=== PATIENT | female | born 1945 | race Caucasian/White ===

== ENCOUNTER 2023-03-03 18:44 | Observation (INO) | payer MEDICARE, SELFPAY ==
[2023-03-03 18:40] VITALS: BP 164/79; PULSE 73; RESP 16; TEMP 36.4; O2SAT 93; BMI 34.0
--- NOTE | 2023-03-03 19:23 | PC.NURSE ---
Doctor in room at 192
--- NOTE | 2023-03-03 19:25 | XR_ITS ---
PROCEDURE INFORMATION: Exam: XR Right Elbow Exam date and time: 03/03/2023 7:35 PM Age: 77 years old Clinical indication: Injury or trauma; Fall; Blunt trauma (contusions or hematomas); Elbow; Right TECHNIQUE: Imaging protocol: Radiologic exam of the right elbow. Views: 3 or more views. COMPARISON: CR XR HUMERUS RT 03/03/2023 7:35 PM FINDINGS: Bones/joints: Osteopenia. Normal alignment. Question cortical discontinuity at the volar and lateral margins of the radial head/neck junction although this may be due to circumferential spurring at the radioulnar joint. Consider CT or short-term radiographic follow-up in 5-7 days for greater specificity as clinically indicated. No definite joint effusion although the degree of obliquity on the lateral view limits sensitivity. Soft tissues: No gross soft tissue abnormalities. IMPRESSION: Contour irregularity at the radial head/neck junction might simply represent circumferential articular spurring, however it is difficult to exclude mildly impacted fracture. Consider CT or short-term radiographic follow-up for greater specificity as clinically indicated.
--- NOTE | 2023-03-03 19:25 | XR_ITS ---
PROCEDURE INFORMATION: Exam: XR Right Humerus Exam date and time: 03/03/2023 7:35 PM Age: 77 years old Clinical indication: Injury or trauma; Fall; Blunt trauma (contusions or hematomas); Arm, upper; Right TECHNIQUE: Imaging protocol: Radiologic exam of the right humerus. Views: 2 or more views. COMPARISON: CR XR SHOULDER RT MIN 2V 03/03/2023 7:35 PM FINDINGS: Bones/joints: Anterior inferior glenohumeral dislocation again noted. No fractures. Elbow alignment grossly normal. AC joint alignment normal with mild osteoarthritic changes. Soft tissues: No soft tissue abnormalities. IMPRESSION: 1. No humeral fracture. 2. Anterior inferior glenohumeral dislocation. 3. Osteopenia and minor osteoarthritic changes.
--- NOTE | 2023-03-03 19:25 | XR_ITS ---
PROCEDURE INFORMATION: Exam: XR Right Shoulder Exam date and time: 03/03/2023 7:35 PM Age: 77 years old Clinical indication: Injury or trauma; Fall; Blunt trauma (contusions or hematomas); Shoulder; Right TECHNIQUE: Imaging protocol: Radiologic exam of the right shoulder. Views: 2 or more views. COMPARISON: CR XR HUMERUS RT 03/03/2023 7:35 PM FINDINGS: Bones/joints: Anterior inferior glenohumeral dislocation. No gross fracture. Osteopenia. Minor osteoarthritic changes at the AC joint, which appears well aligned. Low lung volumes with mild basilar atelectasis which improved on the humeral radiographs with better pulmonary expansion. Moderate cervical osteoarthritic facet changes. Soft tissues: No gross soft tissue abnormalities. IMPRESSION: 1. Anterior inferior glenohumeral dislocation. 2. No gross fractures.
--- NOTE | 2023-03-03 19:25 | XR_ITS ---
PROCEDURE INFORMATION: Exam: XR Chest Exam date and time: 03/03/2023 7:35 PM Age: 77 years old Clinical indication: Injury or trauma; Fall; Blunt trauma (contusions or hematomas) TECHNIQUE: Imaging protocol: Radiologic exam of the chest. Views: 1 view. COMPARISON: CR XR HUMERUS RT 03/03/2023 7:35 PM FINDINGS: Lungs: Normal pulmonary expansion. Pleural spaces: No pleural effusion. No pneumothorax. Heart/Mediastinum: Mild cardiomegaly and central vascular congestion suspicious for an element of chronic CHF. No gross pulmonary infiltrates or edema pattern. No tracheal/mediastinal shift. Bones/joints: Anterior inferior right glenohumeral dislocation. Moderate left glenohumeral osteoarthritic change. Osteopenia. Mild thoracic spondylosis. IMPRESSION: 1. Right glenohumeral anterior inferior dislocation. 2. No gross fractures. No pneumothorax. 3. Question mild cardiomegaly and vascular congestion suspicious for chronic CHF without gross evidence of acute decompensation.
--- NOTE | 2023-03-03 19:26 | HMH.EDFALL ---
Discharge Plan Disposition Chief Complaint: Fall Clinical Impressions Clinical Impression: Fall, Blunt trauma, Anterior shoulder dislocation Discharge ED Provider: Cal Blanco HPI General Chief Complaint: Fall Stated Complaint: Fall Time Seen by Provider: 03/03/23 19:00 Mode of Arrival: EMS Source of Information: Patient Limitations: No Limitations Description of Symptoms (Recalled from ER Triage Doc. by RN): Patient states thatdakshae had her right eyeball removed this morning at and when she got home today she went to check the mail and stumbled and fell. Patient complains of right shoulder pain. Denies LOC. History of Present Illness HPI Narrative: Patient is a 77-year-old female who presents emergency department for evaluation of traumatic injury sustained in a fall. Patient states that she tripped while going to get her mail and fell onto an outstretched right upper extremity. Patient denies hitting her head, loss of consciousness, blood thinners. She is complaining of severe right shoulder pain. Denies other acute complaints at this time. Of note, patient had right eye enucleation surgery today. Related Data Allergies Allergy/AdvReac Type Severity Reaction Status Date / Time statins Allergy Uncoded 03/03/23 18:45 [facility] Disclaimer: The information contained in this section may have been updated after the patient was seen, as this information can be updated by other users. Social History Smoking Status: Never smoker alcohol intake: never current occupational status: other Travel in the last 8 weeks: None ROS Obtained: Yes Systems reviewed as appropriate & no additional complaints except as documented Physical Exam General General appearance: alert and other (Appearing in pain) Head Head exam: atraumatic and normocephalic Eye Eye exam: Present other (Shield in place over right eye) ENT ENT exam: Present mucous membranes moist Neck Neck exam: Present normal inspection; Absent tenderness Chest Chest inspection: Present normal inspection and symmetric chest wall rise Respiratory Respiratory exam: Present normal lung sounds bilaterally; Absent respiratory distress Cardiovascular Cardiovascular exam: Present regular rate and normal rhythm Abdominal Exam Abdominal exam: Present soft; Absent tenderness Extremities Exam Extremities exam: Present other (Severely tender right shoulder and proximal humerus. Palpable right radial pulse. No tenderness over the remainder of the extremities.) Neurological Exam Neurological exam: Present alert Psychiatric Psychiatric exam: Present normal affect Skin Skin exam: Present warm and dry Medical Decision Making Morris Inquiry Pt receiving controlled substance: No Vital Signs: 03/03/23 18:40 03/03/23 22:12 03/03/23 22:20 Temperature 97.5 F L 98.0 F Temperature Source Oral Oral Pulse Rate Pulse Rate [Radial] 73 71 83 Respiratory Rate 16 16 8 L Blood Pressure Blood Pressure [Right Arm] 164/79 H 198/82 H 193/86 H Blood Pressure Mean [Right Arm] 107 120 121 Blood Pressure Source Blood Pressure Source [Right Arm] Automatic Cuff Automatic Cuff Blood Pressure Position Blood Pressure Position [Right Arm] Sitting 02 Sat by Pulse Oximetry 93 L 100 97 Oxygen Delivery Method Room Air Nasal Cannula Nasal Cannula Oxygen Flow Rate (LPM) 4 4 03/03/23 22:20 03/03/23 22:45 Temperature Temperature Source Pulse Rate 73 Pulse Rate [Radial] 74 Respiratory Rate 13 12 Blood Pressure 222/90 H Blood Pressure [Right Arm] 249/103 H Blood Pressure Mean [Right Arm] 151 Blood Pressure Source Automatic Cuff Blood Pressure Source [Right Arm] Automatic Cuff Blood Pressure Position Supine Blood Pressure Position [Right Arm] Supine 02 Sat by Pulse Oximetry 98 100 Oxygen Delivery Method Nasal Cannula Nasal Cannula Oxygen Flow Rate (LPM) 4 4 Lab Data Lab Results 03/03/23 19:39: WBC 12.9 H, RBC 4.07 L, Hgb 13.7, Hct
--- NOTE | 2023-03-03 20:22 | ECG_ITS ---
APPROVED REPORT Exam: Resting ECG HR:68 bpm ECG Measurements Heart Rate 68 AXES ND 198 P 71 QRSd 141 QRS 46 QT 446 T -11 QTc 464 Conclusion SINUS RHYTHM RIGHT BUNDLE BRANCH BLOCK [120+ ms QRS DURATION, UPRIGHT V1, 40+ ms S IN I/aVL/V4/V5/V6] ABNORMAL ECG UNCONFIRMED REPORT Electronically signed by : Scar Marino MD 03/04/2023 20:11:30
[2023-03-03 20:28] LABS: Blood Urea Nitrogen 20 mg/dl (7-17); Carbon Dioxide 28 mmol/L (22.0-30.0); Chloride 99 mmol/L (98-107); Creatinine Clearance Estimated 63 mL/min (50-200); Estimated Glomerular Filt Rate 97 ml/min (>60); GFR (African American) 118 ML/MIN (>60); Glucose 150 mg/dl (74-100); Sodium 135 mmol/L (136-145)
[2023-03-03 20:30] LABS: Basophils % 0.2 % (0.1-2.0); Eosinophils % 0.1 % (0.1-12.0); Hematocrit 40.8 % (37.0-47.0); Hemoglobin 13.7 g/dL (12.2-16.2); Lymphocytes # 0.7 K/mm3 (0.7-4.5); Lymphocytes % 5.7 % (10-50); Mean Corpuscular HGB Conc 33.5 g/dL (31.8-35.4); Mean Corpuscular Hemoglobin 33.6 pg (27.0-31.2); Mean Corpuscular Volume 100.4 fl (81-99); Mean Platelet Volume 9.6 fl (7.4-10.4); Monocytes # 0.7 K/mm3 (0.1-1.0); Monocytes % 5.2 % (1.7-9.3); Neutrophils # 11.5 K/mm3 (1.8-7.8); Neutrophils % 88.8 % (37.0-80.0); Platelet Count 231 K/mm3 (142-424); Red Blood Count 4.07 M/mm3 (4.20-5.40); Red Cell Distribution Width 13.9 % (11.5-17.5); White Blood Count 12.9 K/mm3 (4.8-10.8)
[2023-03-03 20:37] LABS: MANUAL DIFFERENTIAL MANUAL DIFFERENTIAL (MANUAL DIFF)
[2023-03-03 20:59] LABS: Lymphocytes % 7 % (10-50); Neutrophils % 93 % (42-76); Platelet Estimate Normal; RBC Morphology Normal; Total Cells Counted 100
--- NOTE | 2023-03-03 22:05 | XR_ITS ---
PROCEDURE INFORMATION: Exam: XR Right Shoulder Exam date and time: 03/03/2023 10:18 PM Age: 77 years old Clinical indication: Screening exam; Post reduction; Additional info: Dislocation TECHNIQUE: Imaging protocol: Radiologic exam of the right shoulder. Views: 2 or more views. COMPARISON: CR XR SHOULDER RT MIN 2V 03/03/2023 7:35 PM FINDINGS: Bones/joints: Successful reduction of the previous right glenohumeral dislocation. Somewhat high riding right humeral head likely indicates underlying chronic rotator cuff tear, with mild chronic degenerative remodeling of the acromial undersurface. No fracture. Soft tissues: Soft tissues are unremarkable. IMPRESSION: 1. Successful reduction of the right glenohumeral joint. 2. Changes of chronic rotator cuff tear.
[2023-03-03 22:12] VITALS: BP 198/82; PULSE 71; RESP 16; TEMP 36.7; O2SAT 100
[2023-03-03 22:20] VITALS: BP 193/86; BP 249/103; PULSE 74; PULSE 83; RESP 13; RESP 8; O2SAT 97; O2SAT 98
[2023-03-03 22:45] VITALS: BP 222/90; PULSE 73; RESP 12; O2SAT 100
--- NOTE | 2023-03-03 23:26 | PC.NURSE ---
I spoke with Giancarlo, supervisor [employer] house clean[employer], requesting a bed for admission to the hospitalist.
--- NOTE | 2023-03-04 00:08 | PC.NURSE ---
REPORT CALLED TO JULI MOYA
--- NOTE | 2023-03-04 00:10 | PC.NURSE ---
provided patient with water to sip on.
[2023-03-04 00:39] VITALS: BP 163/69; PULSE 63; RESP 12; TEMP 36.6
--- NOTE | 2023-03-04 00:53 | PC.NURSE ---
Patient arrived to floor via stretcher at 00:22.
[2023-03-04 01:00] VITALS: BP 166/98; PULSE 77; RESP 20; TEMP 36.8; O2SAT 93; BMI 35.1
--- NOTE | 2023-03-04 01:13 | EXP.HP ---
History of Present Illness *Admission Date: 03/03/23 *Reason for visit:: Anterior shoulder dislocation *History of present illness: 77-year-old female presented to the ED for c/o right shoulder pain. Patient states that she tripped while going to get her mail and fell onto an outstretched right upper extremity. Patient denies hitting her head, loss of consciousness, blood thinners. She is complaining of severe right shoulder pain. The pt is s/p right eye enucleation surgery today at . She has a PMHX of HTN, HLD, and hypothyroidism. Her initial right shoulder xray revealed a anterior inferior glenohumeral dislocation. The ED physician was able to successful reduce the right glenohumeral joint. The ED physician consulted the hospitalist team for admission for physical therapy and the pt not being safe to return home alone. I admitted the pt to the medical surgical floor. She will have a PT evaluation in the morning. [facility] Disclaimer: The information contained in this section may have been updated after the patient was seen, as this information can be updated by other users. Medical History (Updated 03/04/23 @ 01:05 by Nevin Harrison RN) Hyperlipidemia Hypertension Hypothyroidism Family History (Updated 03/04/23 @ 01:05 by Nevin Harrison RN) Other Family history of heart disease Family history of hyperlipidemia Social History (Updated 03/04/23 @ 01:05 by Nevin Harrison RN) Smoking Status: Never smoker alcohol intake: never current occupational status: other Travel in the last 8 weeks: None Review of Systems Review of Systems Review of systems:: pertinent systems reviewed and negative unless documented below *Musculoskeletal Musculoskeletal: Reports arthralgias Comments: right shoulder pain Meds Home Medications and Allergies Home Medications Medication Instructions Recorded Confirmed Type cholecalciferol (vitamin D3) 50 50 mcg PO DAILY 03/04/23 03/04/23 History mcg (2,000 unit) tablet escitalopram oxalate 20 mg tablet 20 mg PO DAILY 03/04/23 03/04/23 History ezetimibe 10 mg tablet 10 mg PO DAILY 03/04/23 03/04/23 History fluticasone propionate 50 1 spray intranasal DAILY 03/04/23 03/04/23 History mcg/actuation nasal spray,suspension hydrocodone 5 mg-acetaminophen 325 1 tab PO Q6 PRN Pain 03/04/23 03/04/23 History mg tablet meloxicam 15 mg tablet 15 mg PO DAILY 03/04/23 03/04/23 History metoprolol succinate 50 mg 100 mg PO BID 03/04/23 03/04/23 History tablet,extended release 24 hr ondansetron 4 mg disintegrating 4 mg PO Q8 PRN Nausea And Vomiting 03/04/23 03/04/23 History tablet oxybutynin chloride 5 mg tablet 5 mg PO BID 03/04/23 03/04/23 History rosuvastatin 5 mg tablet 5 mg PO WEEKLY 03/04/23 03/04/23 History venlafaxine 150 mg 150 mg PO DAILY 03/04/23 03/04/23 History capsule,extended release 24 hr New Prescriptions to Start Prescriptions: Allergies Allergy/AdvReac Type Severity Reaction Status Date / Time statins Allergy Uncoded 03/03/23 18:45 Exam Data for Last 24 hours Vital signs and Labs for Last 24 Hours: Temp Pulse Resp BP Pulse Ox O2 Del Method O2 Flow Rate 97.8 F 63 12 163/69 H 100 Nasal Cannula 4 03/04/23 00:39 03/04/23 00:39 03/04/23 00:39 03/04/23 00:39 03/03/23 22:45 03/03/23 22:45 03/03/23 22:45 Laboratory Results - last 24 hr 03/03/23 19:39: WBC 12.9 H, RBC 4.07 L, Hgb 13.7, Hct 40.8, MCV 100.4 H, MCH 33.6 H, MCHC 33.5, RDW 13.9, Plt Count 231, MPV 9.6, Neut % (Auto) 88.8 H, Lymph % (Auto) 5.7 L, Thayer % (Auto) 5.2, Eos % (Auto) 0.1, Baso % (Auto) 0.2, Neut # (Auto) 11.5 H, Lymph # (Auto) 0.7, Thayer # (Auto) 0.7, Eos # (Auto) 0.0, Baso # (Auto) 0.0, Total Counted 100, Neutrophils % (Manual) 93 H, Lymphocytes % (Manual) 7 L, Platelet Estimate Normal, RBC Morphology Normal, Sodium 135 L, Potassium 4.0, Chloride 99, Carbon Dioxide 28, Anion Gap 12.0, BUN 20 H, Creatinine 0.60, Estimated Creat Clear 63, Estimat
--- NOTE | 2023-03-04 01:37 | EXP.HP ---
History of Present Illness *Admission Date: 03/03/23 *History of present illness: 77-year-old female presented to the ED for c/o right shoulder pain. Patient states that she tripped while going to get her mail and fell onto an outstretched right upper extremity. Patient denies hitting her head, loss of consciousness, blood thinners. She is complaining of severe right shoulder pain. The pt is s/p right eye enucleation surgery today at . She has a PMHX of HTN, HLD, and hypothyroidism. Her initial right shoulder xray revealed a anterior inferior glenohumeral dislocation. The ED physician was able to successful reduce the right glenohumeral joint. The ED physician consulted the hospitalist team for admission for physical therapy and the pt not being safe to return home alone. I admitted the pt to the medical surgical floor. She will have a PT evaluation in the morning. [facility] Disclaimer: The information contained in this section may have been updated after the patient was seen, as this information can be updated by other users. Medical History (Updated 03/04/23 @ 01:40 by DOLORES Gillis) Hyperlipidemia Hypertension Hypothyroidism Family History (Updated 03/04/23 @ 01:05 by Nevin Harrison RN) Other Family history of heart disease Family history of hyperlipidemia Social History (Updated 03/04/23 @ 01:05 by Nevin Harrison RN) Smoking Status: Never smoker alcohol intake: never current occupational status: other Travel in the last 8 weeks: None Review of Systems Review of Systems Review of systems:: pertinent systems reviewed and negative unless documented below Eyes Eyes: Reports eye pain Comments: s/p right eye enucleation surgery today at *Musculoskeletal Musculoskeletal: Reports arthralgias Comments: right shoulder Meds Home Medications and Allergies Home Medications Medication Instructions Recorded Confirmed Type cholecalciferol (vitamin D3) 50 50 mcg PO DAILY Supplement 03/04/23 03/04/23 History mcg (2,000 unit) tablet escitalopram oxalate 20 mg tablet 20 mg PO DAILY mood 03/04/23 03/04/23 History ezetimibe 10 mg tablet 10 mg PO DAILY High Cholesterol 03/04/23 03/04/23 History fluticasone propionate 50 1 spray intranasal DAILY Allergy 03/04/23 03/04/23 History mcg/actuation nasal Symptoms spray,suspension hydrocodone 5 mg-acetaminophen 325 1 tab PO Q6 PRN Pain 03/04/23 03/04/23 History mg tablet meloxicam 15 mg tablet 15 mg PO DAILYP PRN Pain 03/04/23 03/04/23 History metoprolol succinate 50 mg 100 mg PO BID High Blood Pressure 03/04/23 03/04/23 History tablet,extended release 24 hr ondansetron 4 mg disintegrating 4 mg PO Q8 PRN Nausea And Vomiting 03/04/23 03/04/23 History tablet oxybutynin chloride 5 mg tablet 5 mg PO BID bladder 03/04/23 03/04/23 History rosuvastatin 5 mg tablet 5 mg PO WEEKLY High Cholesterol 03/04/23 03/04/23 History venlafaxine 150 mg 150 mg PO DAILY mood 03/04/23 03/04/23 History capsule,extended release 24 hr New Prescriptions to Start Prescriptions: Allergies Allergy/AdvReac Type Severity Reaction Status Date / Time [id number] Reductase Allergy Unknown Unknown Verified 03/04/23 07:15 Inhibitor allergy reaction Exam Data for Last 24 hours Vital signs and Labs for Last 24 Hours: Temp Pulse Resp BP Pulse Ox O2 Del Method O2 Flow Rate 98.2 F 77 20 166/98 H 93 L Room Air 4 03/04/23 01:00 03/04/23 01:00 03/04/23 01:00 03/04/23 01:00 03/04/23 01:00 03/04/23 01:00 03/03/23 22:45 Laboratory Results - last 24 hr 03/03/23 19:39: WBC 12.9 H, RBC 4.07 L, Hgb 13.7, Hct 40.8, MCV 100.4 H, MCH 33.6 H, MCHC 33.5, RDW 13.9, Plt Count 231, MPV 9.6, Neut % (Auto) 88.8 H, Lymph % (Auto) 5.7 L, [place] % (Auto) 5.2, Eos % (Auto) 0.1, Baso % (Auto) 0.2, Neut # (Auto) 11.5 H, Lymph # (Auto) 0.7, [place] # (Auto) 0.7, Eos # (Auto) 0.0, Baso # (Auto) 0.0, Total Counted 100, Neutrophils % (Manual) 93 H, Lym
[2023-03-04 02:23] LABS: Thyroid Stimulating Hormone 1.75 uIU/mL (0.465-4.68)
[2023-03-04 04:00] VITALS: BP 165/78; PULSE 77; RESP 16; TEMP 36.6; O2SAT 96; BMI 35.2
[2023-03-04 07:42] VITALS: BP 157/89; PULSE 70; RESP 17; TEMP 36.8; O2SAT 94
--- NOTE | 2023-03-04 07:44 | HMH.PHAINT1 ---
Pharmacy Intervention Comments: Med reconciliation completed using external fill history
--- NOTE | 2023-03-04 08:35 | PC.NURSE ---
Pt. arrived to unit at 0030 via w/c. Pt is s/p fall at home. Pt fell outside near pt.'s mailbox. Pt. had surgery on right eye on 03/03/23 at . Pt ia alert and orient x4. Per BOGGER OPERATOR, patient placed in a conscious sedation and a reduction to the right shoulder was performed and completed with success. Sling to be properly in place to RUE. Pt c/o pain to right shoulder. Rating pain 7 . Morphine IV push X1 per facility CREATIVE SERVICES DIRECTOR. Effectiveness noted. [place] 5/325mg PO Q6 hours PRN put in place for future use. Pt has a steady gait with SBA. Continent of bowel and bladder. Lungs clear.
--- NOTE | 2023-03-04 10:00 | HMH.PTEV ---
Physical Therapy Evaluation Rehab PT IP Evaluation Start: 03/03/23 23:41 Freq: ONCE Status: Active Protocol: Document 03/04/23 09:51 YURY (Rec: 03/04/23 10:00 YURY [id number]) Subjective/History History History Patient is a 77 year old female admitted to [facility] secondary to FOOSH injury at home while walking to get her mail. Fall resulted in ant/inf GHJ dislocation. Patient had previously underwent R eye enucleation at and was discharged same day. Patient lives at home alone. Previously independent with all ADL's/IADL's. Patient reports that she has a son that will be able to check in on her daily. Subjective Subjective My right shoulder feels fine because of the meds. The left shoulder has a torn rotator cuff, too. New diagnosis of cancer in past 12 No months? Rehab PT IP Eval Objective Appearance Patient Behavior Appropriate,Cooperative Patient Orientation Person,Place,Birthday Difficulty following instructions none Speech Pattern Clear,Appropriate Ambulation Patient Able to Ambulate Yes Ambulation Observation IP General Gait Pattern Observation No Deviations/Normal Ambulation Distance (feet) 100 Ambulation Assistive Device None Ambulation Ability Contact Guard/Hand Hold Balance Ability to Arise Able, uses arms to help Sitting Balance Steady, safe Standing Balance Narrow stance w/o support Dynamic Sitting Balance Ability Normal Dynamic Standing Balance Ability Normal Transfers Bed Transfer Ability Independent Chair Transfer Ability Independent Sit to Stand Bed Transfer Ability Independent Sit to Stand Chair Transfer Ability Independent Pain Right Shoulder Pain Intensity 2 ROM RUE PT ROM Status ABN Abnormal ROM Comment Patient in sling with instruction to immobilize at this time. MMT RUE PT MMT ABN Abnormal MMT Grade 2/5 Rehab PT IP prob,goals,plan Problems Date of Evaluation: 03/04/23 Rehab Potential Rehab Potential Innapropriate for Skilled
--- NOTE | 2023-03-04 10:38 | SW/DCPLANNER ---
Addendum entered by Christianne Montalvo 03/04/23 13:26: Misty nuñez/ [facility] stated that services will begin this week for this patient. Original Note: I spoke w/ this patient regarding plans once medically stable for discharge. PT evaluated patient and recommended home health services at time of discharge. Patient is agreeable to home health services and prefers to use [facility]. Patient information/order will be faxed to [facility] at time of discharge. Patient will discharge home this afternoon.
--- NOTE | 2023-03-04 11:56 | EXP.DC.SUM ---
General Admission date:: 03/04/23 Discharge date: 03/04/23 HPI HPI HPI: 77-year-old female presented to the ED for c/o right shoulder pain. Patient states that she tripped while going to get her mail and fell onto an outstretched right upper extremity. Patient denies hitting her head, loss of consciousness, blood thinners. She is complaining of severe right shoulder pain. The pt is s/p right eye enucleation surgery today at . She has a PMHX of HTN, HLD, and hypothyroidism. Her initial right shoulder xray revealed a anterior inferior glenohumeral dislocation. The ED physician was able to successful reduce the right glenohumeral joint. The ED physician consulted the hospitalist team for admission for physical therapy and the pt not being safe to return home alone. I admitted the pt to the medical surgical floor. She will have a PT evaluation in the morning. Hospital Course Hospital Course Hospital Course: see same date H&P and discharge addendum patient discharged home with home health Exam Data for Last 24 hours Vital signs and Labs for Last 24 Hours: Temp Pulse Resp BP Pulse Ox O2 Del Method O2 Flow Rate 98.3 F 70 17 157/89 H 94 L Nasal Cannula 2 03/04/23 07:42 03/04/23 07:42 03/04/23 07:42 03/04/23 07:42 03/04/23 07:42 03/04/23 07:42 03/04/23 07:42 Laboratory Results - last 24 hr 03/03/23 19:39: WBC 12.9 H, RBC 4.07 L, Hgb 13.7, Hct 40.8, MCV 100.4 H, MCH 33.6 H, MCHC 33.5, RDW 13.9, Plt Count 231, MPV 9.6, Neut % (Auto) 88.8 H, Lymph % (Auto) 5.7 L, [place] % (Auto) 5.2, Eos % (Auto) 0.1, Baso % (Auto) 0.2, Neut # (Auto) 11.5 H, Lymph # (Auto) 0.7, [place] # (Auto) 0.7, Eos # (Auto) 0.0, Baso # (Auto) 0.0, Total Counted 100, Neutrophils % (Manual) 93 H, Lymphocytes % (Manual) 7 L, Platelet Estimate Normal, RBC Morphology Normal, Sodium 135 L, Potassium 4.0, Chloride 99, Carbon Dioxide 28, Anion Gap 12.0, BUN 20 H, Creatinine 0.60, Estimated Creat Clear 63, Estimated GFR 97, Est GFR ( Amer) 118, Glucose 150 H, Calcium 9.0, TSH 1.75 I & O for Last 24 hours: Intake & Output 03/01/23 03/02/23 03/03/23 03/04/23 23:59 23:59 23:59 23:59 Intake Total 240 / 240 Output Total 200 / 200 Balance 40 / 40 Weight 81.647 kg 84.623 kg Results Data Completed and Pending Labs on day of discharge: Labs from last 24 hours 03/03/23 19:39 WBC 12.9 H RBC 4.07 L Hgb 13.7 Hct 40.8 MCV 100.4 H MCH 33.6 H MCHC 33.5 RDW 13.9 Plt Count 231 MPV 9.6 Neut % (Auto) 88.8 H Lymph % (Auto) 5.7 L [place] % (Auto) 5.2 Eos % (Auto) 0.1 Baso % (Auto) 0.2 Neut # (Auto) 11.5 H Lymph # (Auto) 0.7 [place] # (Auto) 0.7 Eos # (Auto) 0.0 Baso # (Auto) 0.0 Total Counted 100 Neutrophils % (Manual) 93 H Lymphocytes % (Manual) 7 L Platelet Estimate Normal RBC Morphology Normal Sodium 135 L Potassium 4.0 Chloride 99 Carbon Dioxide 28 Anion Gap 12.0 BUN 20 H Creatinine 0.60 Estimated Creat Clear 63 Estimated GFR 97 Est GFR ( Amer) 118 Glucose 150 H Calcium 9.0 TSH 1.75 DS: Diagnosis Discharge Diagnosis (1) Anterior shoulder dislocation: Status: Acute Code(s): S43.016A - Anterior dislocation of unspecified humerus, initial encounter (2) Fall: Status: Acute Code(s): W19.XXXA - Unspecified fall, initial encounter (3) Blunt trauma: Status: Acute Code(s): T14.90XA - Injury, unspecified, initial encounter (4) Hypothyroidism: Status: Acute Code(s): E03.9 - Hypothyroidism, unspecified (5) Hypertension: Status: Acute Code(s): I10 - Essential (primary) hypertension (6) Hyperlipidemia: Status: Acute Code(s): E78.5 - Hyperlipidemia, unspecified Meds Home Medications and Allergies Home Medications Medication Instructions Recorded Confirmed Type cholecalciferol (vitamin D3) 50 50 mcg PO DAILY Supplement 03/04/23 03/04/23 History mcg (2,000 unit) tablet escitalopr
--- NOTE | 2023-03-04 12:09 | EXP.ORTH.CON ---
History of Present Illness *Admission Date: 03/03/23 *History of present illness: 77-year-old female presented to the ED for c/o right shoulder pain. Patient states that she tripped while going to get her mail and fell onto an outstretched right upper extremity. Patient denies hitting her head, loss of consciousness, blood thinners. She is complaining of severe right shoulder pain. The pt is s/p right eye enucleation surgery today at . She has a PMHX of HTN, HLD, and hypothyroidism. Injury x-ray of right shoulder showed anterior dislocation of the glenohumeral joint. Fortunately Dr. Blanco did a great job of reducing the shoulder and had successful reduction of the anterior dislocation. She was placed in a sling and immobilizer. Ortho consulted regarding any further treatment options in regards to the shoulder dislocation. [facility] Disclaimer: The information contained in this section may have been updated after the patient was seen, as this information can be updated by other users. Medical History (Updated 03/04/23 @ 12:11 by Hemant García DO) Hyperlipidemia Hypertension Hypothyroidism Family History (Updated 03/04/23 @ 01:05 by Nevin Harrison RN) Other Family history of heart disease Family history of hyperlipidemia Social History (Updated 03/04/23 @ 01:05 by Nevin Harrison RN) Smoking Status: Never smoker alcohol intake: never current occupational status: other Travel in the last 8 weeks: None Meds Home Medications and Allergies Home Medications Medication Instructions Recorded Confirmed Type cholecalciferol (vitamin D3) 50 50 mcg PO DAILY Supplement 03/04/23 03/04/23 History mcg (2,000 unit) tablet escitalopram oxalate 20 mg tablet 20 mg PO DAILY mood 03/04/23 03/04/23 History ezetimibe 10 mg tablet 10 mg PO DAILY High Cholesterol 03/04/23 03/04/23 History fluticasone propionate 50 1 spray intranasal DAILY Allergy 03/04/23 03/04/23 History mcg/actuation nasal Symptoms spray,suspension hydrocodone 5 mg-acetaminophen 325 1 tab PO Q6 PRN Pain 03/04/23 03/04/23 History mg tablet meloxicam 15 mg tablet 15 mg PO DAILYP PRN Pain 03/04/23 03/04/23 History metoprolol succinate 50 mg 100 mg PO BID High Blood Pressure 03/04/23 03/04/23 History tablet,extended release 24 hr ondansetron 4 mg disintegrating 4 mg PO Q8 PRN Nausea And Vomiting 03/04/23 03/04/23 History tablet oxybutynin chloride 5 mg tablet 5 mg PO BID bladder 03/04/23 03/04/23 History rosuvastatin 5 mg tablet 5 mg PO WEEKLY High Cholesterol 03/04/23 03/04/23 History venlafaxine 150 mg 150 mg PO DAILY mood 03/04/23 03/04/23 History capsule,extended release 24 hr New Prescriptions to Start Prescriptions: Allergies Allergy/AdvReac Type Severity Reaction Status Date / Time [id number] Reductase Allergy Unknown Unknown Verified 03/04/23 07:15 Inhibitor allergy reaction Ortho Exam (Inpt) Vital signs and Labs for Last 24 Hours: Temp Pulse Resp BP Pulse Ox O2 Del Method O2 Flow Rate 98.3 F 70 17 157/89 H 94 L Nasal Cannula 2 03/04/23 07:42 03/04/23 07:42 03/04/23 07:42 03/04/23 07:42 03/04/23 07:42 03/04/23 07:42 03/04/23 07:42 Laboratory Results - last 24 hr 03/03/23 19:39: WBC 12.9 H, RBC 4.07 L, Hgb 13.7, Hct 40.8, MCV 100.4 H, MCH 33.6 H, MCHC 33.5, RDW 13.9, Plt Count 231, MPV 9.6, Neut % (Auto) 88.8 H, Lymph % (Auto) 5.7 L, [place] % (Auto) 5.2, Eos % (Auto) 0.1, Baso % (Auto) 0.2, Neut # (Auto) 11.5 H, Lymph # (Auto) 0.7, [place] # (Auto) 0.7, Eos # (Auto) 0.0, Baso # (Auto) 0.0, Total Counted 100, Neutrophils % (Manual) 93 H, Lymphocytes % (Manual) 7 L, Platelet Estimate Normal, RBC Morphology Normal, Sodium 135 L, Potassium 4.0, Chloride 99, Carbon Dioxide 28, Anion Gap 12.0, BUN 20 H, Creatinine 0.60, Estimated Creat Clear 63, Estimated GFR 97, Est GFR ( Amer) 118, Glucose 150 H, Calcium 9.0, TSH 1.75 I & O for Labs for Last 24 Hours: Intake & Output
--- NOTE | 2023-03-05 15:35 | CARE MANAGER ---
Called and spoke with patient regarding recent discharge. Patient states that she is doing well, plans to call and schedule f/u appt with Dr. García.
== END 2023-03-04 15:56 | disposition home health service (06) ==
LOC: ER 21:44 → 2ND 03-04 00:41
PROVIDERS: Nurse Practitioner Critical Care Medicine; Admitting Provider Internal Medicine Adolescent Medicine; Emergency Provider Emergency Medicine; PCP Nurse Practitioner; Visit Provider Internal Medicine Adolescent Medicine
DX: W01.0XXA Fall on same level from slipping, tripping and stumbling without subsequent striking against object, initial encounter; Y92.019 Unspecified place in single-family (private) house as the place of occurrence of the external cause; E03.9 Hypothyroidism, unspecified; I10 Essential (primary) hypertension; E78.5 Hyperlipidemia, unspecified; S43.014A Anterior dislocation of right humerus, initial encounter; Z79.899 Other long term (current) drug therapy
CPT/HCPCS: 23655; 71045; 73030; 73060; 73080; 80048; 84443; 85007; 85025; 93005; 97163; 99285; G0378; J0131; J2405